=== PATIENT | male | born 1960 | race Caucasian/White ===

== ENCOUNTER 2017-03-30 15:00 | Outpatient (CLI) | payer OTHER | END 2017-03-30 15:01 | disposition home or self-care (01) | LOC: SC 15:00 | PROVIDERS: ATTEND Internal Medicine Pulmonary Disease | DX: G47.33 Obstructive sleep apnea (adult) (pediatric) (principal) | CPT/HCPCS: 99212; 99213 ==

== ENCOUNTER 2018-03-29 14:46 | Outpatient (CLI) | payer OTHER | END 2018-03-29 14:47 | disposition home or self-care (01) | LOC: SC 14:46 | PROVIDERS: ATTEND Internal Medicine Pulmonary Disease | DX: G47.33 Obstructive sleep apnea (adult) (pediatric) (principal) | CPT/HCPCS: 99212; 99213 ==

== ENCOUNTER 2019-04-18 15:06 | Outpatient (CLI) | payer OTHER ==
--- NOTE | 2019-04-18 16:37 | SLEEP CARE CONSULTATION ---
Information from patient questionnaire entered by Yanna Hinds. I have reviewed and concur with the information entered by Yanna Hinds. This document represents the service I personally performed and the decisions made by me, Steffi Khalil MD, [facility]. History of Present Illness Previous diagnosis: Mild, Obstructive Sleep Apnea-Hypopnea Syndrome AHI: 17.3 Reason for CPAP/BiPAP follow up: annual Equipment type: CPAP Equipment obtained from: [employer] Mask brand: Respironics Prior sleep studies: Yes Year and Where: 2012 [facility] HPI additional information: HPI: Mr. Cerna returned today for annual follow up of nasal CPAP therapy. He was diagnosed to have moderate obstructive sleep apnea-hypopnea syndrome (AHI was 17.3). The patient wears a [employer] DreamWear nasal cushion mask. He reports using the device nightly and all through the night. The compliance report shows usage in 180 nights out of the past 180 nights, averaging 5 hours a night. He complained of no particular problem with the device such as soreness on the face, dry nose, epistaxis, nasal congestion or headache. He thinks that the pressure of 7 cmH2O is comfortable. On the CPAP therapy he notices improvement in his sleep quality, and that he wakes up feeling fresher in the morning and more awake/alert during the day. His notices rare snore through the CPAP, about once a month. The average residual AHI is 1.2; and air leak, 0 L/min. CPAP Compliance Data - Data Reviewed with Patient Average duration of nightly device use: 4H 58M Compliance rate %: 95 Current pressure setting (cmH2O): 7 Humidity settin Heated hose settin Subjective Initial [place] Sleepiness Scale score: 19 Current [place] Sleepiness Scale score: 10 Allergies and Home Medications Home medication list reviewed: Yes Review of Systems Review of systems same as previous: Yes Impression and Plan IMPRESSION: 1. Obstructive Sleep Apnea-Hypopnea Syndrome, moderate, with the patient continuing to do very well on nasal CPAP therapy. He has excellent compliance and significant clinical improvement. The current pressure appears effective and comfortable. Overall, he is very satisfied with treatment and plans to continue with it long-term. No adjustment is necessary today. PLAN: 1. Continue with CPAP set at 7 cmH2O. 2. Try to lose some weight 3. Try the new ResMed N30i mask. 4. Return in one year for follow up or earlier if there is any problem with the treatment. I spent 100% of this 15 minute visit face to face with the patient with greater than 50% of this was spent time counseling the patient and coordination of care.
== END 2019-04-18 15:07 | disposition home or self-care (01) ==
LOC: SC 15:06
PROVIDERS: ATTEND Internal Medicine Pulmonary Disease
DX: G47.33 Obstructive sleep apnea (adult) (pediatric) (principal)
CPT/HCPCS: 99212; 99213

== ENCOUNTER 2020-04-23 15:13 | Outpatient (CLI) | payer OTHER ==
--- NOTE | 2020-04-23 16:02 | SLEEP CARE CONSULTATION ---
Information from patient questionnaire entered by Elaine Stone. I have reviewed and concur with the information entered by Elaine Stone. This document represents the service I personally performed and the decisions made by me, Steffi Khalil MD, [facility]. History of Present Illness Service Date and Time: 04/23/2020 1513 Previous diagnosis: Mild, Obstructive Sleep Apnea-Hypopnea Syndrome AHI: 17.3 (in 2012) Reason for follow up: annual (last seen 2018) Equipment type: CPAP Equipment obtained from: [employer] Mask style: Nasal [facility]: Yes [facility] Type of Sleep [facility]: Polysomnography HPI additional information: He was diagnosed to have moderate obstructive sleep apnea-hypopnea syndrome (AHI was 17.3). The patient wears a Respir[employer]ly[employer] DreamWear nasal cushion mask. He gets his supplies from [employer]. He reports using the device nightly and all through the night. The compliance report shows usage in 180 nights out of the past 180 nights, averaging 5.4 hours a night. The > 4 hour compliance rate for the past 180 days is 100%. He complained of no particular problem with the device such as soreness on the face, dry nose, epistaxis, nasal congestion or headache. He thinks that the pressure of 7 cmH2O is comfortable. On the CPAP therapy he notices improvement in his sleep quality, and that he wakes up feeling fresher in the morning and more awake/alert during the day. His notices rare snore through the CPAP, about once a month. The average residual AHI is 1.2; and air leak, 0 L/min. Sleep Study - Results Prior sleep studies: Yes [facility] Compliance Data - Data Reviewed with Patient Average duration of nightly device use: 5.45 Compliance rate %: 99.4 (180 days) Current pressure setting (cmH2O): 7 Humidity settin Heated hose settin Average residual AHI: 1.2 Average large leak: 0 Subjective Initial [place] Sleepiness Scale score: 20 (in 2007) Allergies and Home Medications Drug allergies reviewed: Yes Home medication list reviewed: Yes Review of Systems Review of systems same as previous: Yes Physical Exam Height: 5 ft 8 in Weight: 190 lb Body Mass Index: 28.8 BMI Classification: Overweight Impression and Plan IMPRESSION: 1. Obstructive Sleep Apnea-Hypopnea Syndrome, moderate, with the patient continuing to do very well on nasal CPAP therapy. He has excellent compliance and significant clinical improvement. The current pressure appears effective and comfortable. Overall, he is very satisfied with treatment and plans to continue with it long-term. Because the residual AHI is low, I will set his device as autoCPAP with pressure range 5 7 cmH2O. PLAN: 1. CPAP set as autoCPAP via the modem. 2. Try to lose some weight 3. Try the new ResMed N30i mask. 4. Return in one year for follow up or earlier if there is any problem with the treatment. Visit Type: In Office Time Spent with Patient (minutes): 15 Provider Statement: I spent 100% of the Face to Face Visit with the patient with greater than 50% spent counseling the patient and coordination of care.
== END 2020-04-23 15:14 | disposition home or self-care (01) ==
LOC: SC 15:13
PROVIDERS: ATTEND Internal Medicine Pulmonary Disease
DX: G47.33 Obstructive sleep apnea (adult) (pediatric) (principal); E66.3 Overweight; Z68.28 Body mass index [BMI] 28.0-28.9, adult
CPT/HCPCS: 99212; 99213

== ENCOUNTER 2021-04-07 15:12 | Outpatient (CLI) | payer OTHER ==
--- NOTE | 2021-04-07 16:08 | SLEEP CARE CONSULTATION ---
Information from patient questionnaire entered by Elaine Stone. I have reviewed and concur with the information entered by Elaine Stone. This document represents the service I personally performed and the decisions made by me, Steffi Khalil MD, [facility]. History of Present Illness Service Date and Time: 04/07/2021 1512 Previous diagnosis: Mild, Obstructive Sleep Apnea-Hypopnea Syndrome AHI: 17.3 (in 2012) Reason for follow up: annual (last seen 2019) Equipment type: CPAP Equipment obtained from: [employer] Mask style: Nasal Prior sleep studies: Yes Year and Where: 2013 - [facility] Sleep HPI additional information: HPI: Mr. Cerna returned today for annual follow up of nasal CPAP therapy. He was diagnosed to have moderate obstructive sleep apnea-hypopnea syndrome (AHI was 17.3). The patient wears a Respironics DreamWear nasal cushion mask. He gets his supplies from [employer]. He reports using the device nightly and all through the night. The compliance report shows usage in 180 nights out of the past 180 nights, averaging 4.4 hours a night. The > 4 hour compliance rate for the past 180 days is 74.4%. He complained of no particular problem with the device such as soreness on the face, dry nose, epistaxis, nasal congestion or headache. He thinks that the pressure of 5-7 cmH2O is comfortable. On the CPAP therapy he notices improvement in his sleep quality, and that he wakes up feeling fresher in the morning and more awake/alert during the day. His notices rare snore through the CPAP, about once a month. The average residual AHI is 2.1; and air leak, 0 L/min. CPAP Compliance Data - Data Reviewed with Patient Average duration of nightly device use: 4 hr 27 min Compliance rate %: 74.4 (180 days) Current pressure setting (cmH2O): 5-7 Humidity settin Heated hose settin Average residual AHI: 2.1 Average large leak: 0 Subjective Initial [place] Sleepiness Scale score: 20 (in 2007) Current [place] Sleepiness Scale score: 8 Allergies and Home Medications Drug allergies reviewed: Yes Home medication list reviewed: Yes Review of Systems Review of systems same as previous: Yes Physical Exam Height: 5 ft 8 in Weight: 200 lb Weight change since last visit: +10 Body Mass Index: 30.4 BMI Classification: Obese Impression and Plan IMPRESSION: 1. Obstructive Sleep Apnea-Hypopnea Syndrome, moderate, with the patient continuing to do very well on nasal CPAP therapy. He has good compliance and significant clinical improvement. The current pressure appears effective and comfortable. Overall, he is very satisfied with treatment and plans to continue with it long-term. Because his Respironics DreamStation AutoCPAP is being recalled and it is older than 5 years, I will order him a new one. PLAN: 1. Prescription made for an autoCPAP, heated humidifier, and related supplies. 2. Return for follow up after one month of using the CPAP. Counseling Topics: Weight control Prescriptions: Auto CPAP Follow up with Sleep Care in: 1-2 months Visit Type: In Office Time Spent with Patient (minutes): 15 Provider Statement: I spent 100% of the Face to Face Visit with the patient with greater than 50% spent counseling the patient and coordination of care.
== END 2021-04-07 15:13 | disposition home or self-care (01) ==
LOC: SC 15:12
PROVIDERS: ATTEND Internal Medicine Pulmonary Disease
DX: G47.33 Obstructive sleep apnea (adult) (pediatric) (principal); E66.9 Obesity, unspecified; Z68.30 Body mass index [BMI] 30.0-30.9, adult
CPT/HCPCS: 99212

== ENCOUNTER 2022-05-18 14:37 | Outpatient (CLI) | payer OTHER ==
[2022-05-18 17:23] VITALS: BP 120/78
--- NOTE | 2022-05-18 17:23 | SLEEP CARE CONSULTATION ---
Information from patient questionnaire entered by Dilcia Ellis. I have reviewed and concur with the information entered by Dilcia Ellis. This document represents the service I personally performed and the decisions made by me, Steffi Khalil MD, [facility]. History of Present Illness Service Date and Time: 05/18/2022 1437 Previous diagnosis: Mild, Obstructive Sleep Apnea-Hypopnea Syndrome AHI: 17.3 (in 2012) Reason for follow up: annual (LAST SEEN 04/19) Equipment type: CPAP (DREAMSTATION) Equipment obtained from: [employer] Mask style: Nasal Prior sleep studies: Yes Year and Where: 2012 - [facility] Sleep HPI additional information: Mr. Cerna returned today for annual follow up of nasal CPAP therapy. He was diagnosed to have moderate obstructive sleep apnea-hypopnea syndrome (AHI was 17.3). The patient wears a [employer]pir[employer]ams DreamWear nasal cushion mask. He gets his supplies from [employer]. He bought a new Juany autoCPAP from [employer]. It is set on the same pressure of 5 7. The compliance data, however, on had 1 night of usage. The patient has also not been able to get data from scanning the QR code. He says he is using the device about 5 hours a night. Sleep Study - Results Prior sleep studies: Yes Year and Where: 2012 - [facility] Sleep Subjective Initial [place] Sleepiness Scale score: 20 (in 2007) Current [place] Sleepiness Scale score: 4 (05/18/22) Allergies and Home Medications Drug allergies reviewed: Yes Home medication list reviewed: Yes Review of Systems Review of systems same as previous: Yes Physical Exam Vital signs obtained and entered by: HYACINTH DIEGO Blood Pressure: 120/78 (LEFT ARM ) Cuff size: regular Heart Rate: 75 O2 Saturation: 99 Height: 5 ft 8 in Weight: 195 lb Body Mass Index: 29.6 BMI Classification: Overweight Impression and Plan IMPRESSION: 1. Obstructive Sleep Apnea-Hypopnea Syndrome, moderate, with the patient using his new Juany autoCPAP consistently. The compliance/efficacy report is not available. We will ask his durable medical supplier [employer] to furnish us with one-month summary of his usage. If that is not available, I recommend the patient return to the device and ask for a ResMed AirSense 11 autoCPAP. He probably will get a Walker Respironics device to replace the recalled one. PLAN: 1. Contact [facility] for compliance/efficacy report. 2. Return for follow up after one month of using the CPAP. Follow up with Sleep Care in: 1 year Visit Type: In Office Time Spent with Patient (minutes): 15 Provider Statement: I spent 100% of the Face to Face Visit with the patient with greater than 50% spent counseling the patient and coordination of care.
== END 2022-05-18 14:38 | disposition home or self-care (01) ==
LOC: SC 14:37
PROVIDERS: ATTEND Internal Medicine Pulmonary Disease
DX: G47.33 Obstructive sleep apnea (adult) (pediatric) (principal)
CPT/HCPCS: 99212

== ENCOUNTER 2022-08-24 15:57 | Outpatient (CLI) | payer OTHER ==
--- NOTE | 2022-08-24 16:43 | XRAY Report ---
PROCEDURE: Wrist 2 View RT INDICATIONS: CONTUSION OF R WRIST TECHNIQUE: 2 views of the wrist were acquired. COMPARISON: None FINDINGS: Bones: No definite acute fractures or dislocations. Chronic appearing deformities can be seen involv ing the distal radius and the distal ulna. No suspicious bony lesions. Soft tissues: No suspicious soft tissue calcifications. IMPRESSION: These imaging findings are most compatible with chronic deformities of the distal radius and distal u loan manager. However, differential diagnosis includes acute, nondisplaced fractures. Please correlate with fo cari tenderness. If clinically appropriate, please consider a follow-up CT for further evaluation. Reviewed by: Bret Feliz MD on 08/24/2022 3:42 PM [facility] Approved by: Bret Feliz MD on 08/24/2022 3:42 PM [facility] Station ID: [id number]
== END 2022-08-24 23:59 | disposition home or self-care (01) ==
LOC: DI.N 15:57
PROVIDERS: ATTEND Nurse Practitioner
DX: S60.211A Contusion of right wrist, initial encounter (principal)

== ENCOUNTER 2023-04-05 10:54 | Outpatient (CLI) | payer OTHER ==
--- NOTE | 2023-04-05 12:46 | SLEEP CARE CONSULTATION ---
Information from patient questionnaire entered by Selma Davis. I have reviewed and concur with the information entered by Selma Davis. This document represents the service I personally performed and the decisions made by me, Steffi Khalil MD, [facility]. History of Present Illness Service Date and Time: 04/05/2023 1054 Previous diagnosis: Mild, Obstructive Sleep Apnea-Hypopnea Syndrome AHI: 17.3 (in 2012) Reason for follow up: other (11 MONTH F/U) Equipment type: CPAP (DREAMSTATION SD CARD NEEDED) Equipment obtained from: [employer] Mask style: Nasal Prior sleep studies: Yes Year and Where: 2012 - [facility] Sleep HPI additional information: Mr. Cerna returned today for annual follow up of nasal CPAP therapy. He was diagnosed to have moderate obstructive sleep apnea-hypopnea syndrome (AHI was 17.3). The patient wears a Respironics DreamWear nasal cushion mask. He gets his supplies from [employer]. He has a Juany autoCPAP from [employer]. It is set on the same pressure of 5 7 cmH2O. The compliance data show usage in 90 out of 90 nights between 12/1602/23/2023. No newer data are available. He says he is using the device about 5 hours a night. The residual AHI was 0.2 as of last year. Large air leak is 0 minutes. Sleep Study - Results Prior sleep studies: Yes Year and Where: 2012 - [facility] Sleep Subjective Initial [place] Sleepiness Scale score: 20 (in 2007) Current [place] Sleepiness Scale score: 5 (04/05/23) Allergies and Home Medications Drug allergies reviewed: Yes Home medication list reviewed: Yes Review of Systems Review of systems same as previous: Yes Physical Exam Vital signs obtained and entered by: SELMA Baird MA Blood Pressure: 112/70 (LEFT ARM) Cuff size: regular Heart Rate: 50 O2 Saturation: 97 Height: 5 ft 8 in Weight: 198 lb 6.4 oz Body Mass Index: 30.2 BMI Classification: Obese Impression and Plan IMPRESSION: 1. Obstructive Sleep Apnea-Hypopnea Syndrome, moderate, with the patient using his new Juany autoCPAP consistently. The current pressure setting appears effective and comfortable. He is still waiting for a replacement machine from [employer]. PLAN: 1. Contact [employer] to see when is he getting the replacement machine. 2. Return for follow up in a year or earlier if there is any problem. Continue with device pressure at (cmH2O): 5 - 7 Follow up with Sleep Care in: 1 year Visit Type: In Office Time Spent with Patient (minutes): 15 Provider Statement: I spent 100% of the Face to Face Visit with the patient with greater than 50% spent counseling the patient and coordination of care.
[2023-04-05 12:50] VITALS: BP 112/70
== END 2023-04-05 10:55 | disposition home or self-care (01) ==
LOC: SC 10:54
PROVIDERS: ATTEND Internal Medicine Pulmonary Disease
DX: G47.33 Obstructive sleep apnea (adult) (pediatric) (principal); E66.9 Obesity, unspecified; Z68.30 Body mass index [BMI] 30.0-30.9, adult
CPT/HCPCS: 99212

== ENCOUNTER 2024-04-10 13:04 | Outpatient (CLI) | payer OTHER ==
--- NOTE | 2024-04-11 08:04 | SLEEP CARE CONSULTATION ---
Information from patient questionnaire entered by Glendy Davis. I have reviewed and concur with the information entered by Glendy Davis. This document represents the service I personally performed and the decisions made by me, Steffi Khalil MD, [facility]. History of Present Illness Service Date and Time: 04/10/2024 1304 Previous diagnosis: Mild, Obstructive Sleep Apnea-Hypopnea Syndrome AHI: 17.3 (in 2012) Reason for follow up: annual (LAST SEEN 03/2023) Equipment type: CPAP (DREAMSTATION SD CARD NEEDED) Equipment obtained from: [employer] Mask style: Nasal Prior sleep studies: Yes Year and Where: 2012 - [facility] Sleep HPI additional information: Mr. Cerna returned today for annual follow up of nasal CPAP therapy. He was diagnosed to have moderate obstructive sleep apnea-hypopnea syndrome (AHI was 17.3). The patient wears a Respironics DreamWear nasal cushion mask. He gets his supplies from [employer]. He has a Juany autoCPAP from [employer] but is using a [employer] Respironics DreamStation 1 autoCPAP which came to him as the replacement to his older machine that was recalled. It is set on the same pressure of 5 7 cmH2O. The compliance data show usage in 321 out of 321 nights, averaging 5.9 hours a night. Residual AHI = 2.4. Average time in large leak per day is 0. His [place] Sleepiness Scale score is 10. Sleep Study - Results Prior sleep studies: Yes Year and Where: 2012 - [facility] Sleep CPAP Compliance Data - Data Reviewed with Patient Average duration of nightly device use: 5HRS 53MINS 14SECS Compliance rate %: 87.9 (04/07/23-04/05/24) Current pressure setting (cmH2O): 5-7 Average residual AHI: 2.4 Subjective Initial [place] Sleepiness Scale score: 20 (in 2007) Current [place] Sleepiness Scale score: 9 (04/10/24) Allergies and Home Medications Drug allergies reviewed: Yes Home medication list reviewed: Yes Review of Systems Review of systems same as previous: Yes Physical Exam Vital signs obtained and entered by: GLENDY Baird MA Blood Pressure: 137/72 (LEFT ARM) Cuff size: regular Heart Rate: 79 O2 Saturation: 99 Height: 5 ft 8 in Weight: 201 lb 3.2 oz Body Mass Index: 30.6 BMI Classification: Obese Impression and Plan IMPRESSION: 1. Obstructive Sleep Apnea-Hypopnea Syndrome, moderate, with the patient using his Walker Respironics DreamStation autoCPAP. The current pressure setting appears effective and comfortable. No adjustment is necessary today. He will be eligible for a new machine when his Juany CPAP becomes 5 years old. PLAN: 1. Continue with autoCPAP set at 5 7 cmH2O. 2. Return for follow up in a year or earlier if there is any problem. Follow up with Sleep Care in: 1 year Visit Type: In Office Time Spent with Patient (minutes): 15 Provider Statement: I spent 100% of the Face to Face Visit with the patient with greater than 50% spent counseling the patient and coordination of care.
[2024-04-11 08:11] VITALS: BP 137/72; O2SAT 99
== END 2024-04-10 13:05 | disposition home or self-care (01) ==
LOC: SC 13:04
PROVIDERS: ATTEND Internal Medicine Pulmonary Disease
DX: G47.33 Obstructive sleep apnea (adult) (pediatric) (principal); E66.9 Obesity, unspecified; Z68.30 Body mass index [BMI] 30.0-30.9, adult
CPT/HCPCS: 99212